=== PATIENT | female | born 1945 | race Caucasian/White ===

== ENCOUNTER 2016-11-26 13:00 | Outpatient (RCR) | payer MEDICARE, OTHER | END 2016-12-24 | disposition home or self-care (01) | LOC: WCC 13:00 | DX: L89.324 Pressure ulcer of left buttock, stage 4 (principal); L59.8 Other specified disorders of the skin and subcutaneous tissue related to radiation; W88.8XXS Exposure to other ionizing radiation, sequela; C18.9 Malignant neoplasm of colon, unspecified; Z88.0 Allergy status to penicillin; Z80.9 Family history of malignant neoplasm, unspecified; Z82.49 Family history of ischemic heart disease and other diseases of the circulatory system; G35 Multiple sclerosis; Z79.82 Long term (current) use of aspirin | CPT/HCPCS: 11042; G0277; G0463 ==

== ENCOUNTER 2016-12-26 12:30 | Outpatient (RCR) | payer MEDICARE, OTHER | END 2017-01-21 | disposition home or self-care (01) | LOC: WCC 12:30 | DX: Z77.123 Contact with and (suspected) exposure to radon and other naturally occurring radiation (principal); L59.8 Other specified disorders of the skin and subcutaneous tissue related to radiation; Z85.048 Personal history of other malignant neoplasm of rectum, rectosigmoid junction, and anus; G35 Multiple sclerosis; Z79.82 Long term (current) use of aspirin; Z88.0 Allergy status to penicillin | CPT/HCPCS: G0463 ==

== ENCOUNTER 2017-05-22 12:08 | Outpatient (RCR) | payer MEDICARE, OTHER ==
[~2017-05-22] VITALS: Ht 167.6 cm; Wt 52.2 kg
[2017-05-23] MEDS ORDERED: Lidocaine HCl 2% Jelly 5ml Tube TOPIC ONE (13:00)
== END 2017-05-23 | disposition home or self-care (01) ==
LOC: WCC 12:08
DX: L89.324 Pressure ulcer of left buttock, stage 4 (principal); C18.9 Malignant neoplasm of colon, unspecified; L59.8 Other specified disorders of the skin and subcutaneous tissue related to radiation; W88.8XXS Exposure to other ionizing radiation, sequela; G35 Multiple sclerosis; Z88.0 Allergy status to penicillin
CPT/HCPCS: G0463

== ENCOUNTER 2017-06-12 12:58 | Outpatient (RCR) | payer MEDICARE, OTHER | END 2017-06-23 | disposition home or self-care (01) | LOC: WCC 12:58 | DX: L98.419 Non-pressure chronic ulcer of buttock with unspecified severity (principal); G35 Multiple sclerosis; Z85.048 Personal history of other malignant neoplasm of rectum, rectosigmoid junction, and anus; Z88.0 Allergy status to penicillin; Z88.8 Allergy status to other drugs, medicaments and biological substances | CPT/HCPCS: G0463 ==